=== PATIENT | female | born 1995 | race Caucasian/White ===

== ENCOUNTER 2021-10-13 11:54 | Outpatient (CLI) | payer OTHER ==
[2021-10-13 14:57] LABS: Hemoglobin 13.3 g/dL (12.0-15.5); Mean Corpuscular HGB CONC 32.1 g/dL (32.0-36.0); Mean Corpuscular Hemoglobin 27.8 pg (27.0-33.0); Mean Corpuscular Volume 86.6 fl (81.6-98.3); Mean Platelet Volume 9.8 fl (7.4-10.4); Platelet Count 439 10x3/uL (150-450); RBC Distribution Width 12.5 % (11.5-14.5); Red Blood Cell (RBC) Count 4.78 10x6/uL (3.90-5.03); White Blood Cell (WBC) Count 7.9 10x3/uL (3.5-10.5)
[2021-10-13 15:11] LABS: BHCG - Serum Negative (NEGATIVE); Pregs Control Background? CLEAR/WHITE (CLR/WHITE); Pregs Control Bar Appear? YES (CONTROL BAR)
[2021-10-14 09:12] LABS: SARS-CoV-2 PCR by NAA Not Detected (NotDetected)
== END 2021-10-13 11:55 | disposition home or self-care (01) ==
LOC: CSHLAB 11:54
PROVIDERS: ATTEND Obstetrics & Gynecology
DX: Z01.812 Encounter for preprocedural laboratory examination (principal); Z20.822 Contact with and (suspected) exposure to COVID-19; R10.2 Pelvic and perineal pain; G89.29 Other chronic pain; N94.6 Dysmenorrhea, unspecified; N80.0 Endometriosis of uterus
CPT/HCPCS: 84703; 85027; 86850; 86900; 86901; U0003; U0005

== ENCOUNTER 2021-10-18 08:11 | Day surgery (SDC) | payer OTHER ==
[2021-10-06 10:09] VITALS: BMI 45.3
[2021-10-13 14:57] LABS: Hemoglobin 13.3 g/dL (12.0-15.5); Mean Corpuscular HGB CONC 32.1 g/dL (32.0-36.0); Mean Corpuscular Hemoglobin 27.8 pg (27.0-33.0); Mean Corpuscular Volume 86.6 fl (81.6-98.3); Mean Platelet Volume 9.8 fl (7.4-10.4); Platelet Count 439 10x3/uL (150-450); RBC Distribution Width 12.5 % (11.5-14.5); Red Blood Cell (RBC) Count 4.78 10x6/uL (3.90-5.03); White Blood Cell (WBC) Count 7.9 10x3/uL (3.5-10.5)
[2021-10-13 15:11] LABS: BHCG - Serum Negative (NEGATIVE); Pregs Control Background? CLEAR/WHITE (CLR/WHITE); Pregs Control Bar Appear? YES (CONTROL BAR)
[2021-10-14 09:12] LABS: SARS-CoV-2 PCR by NAA Not Detected (NotDetected)
[2021-10-18] MEDS ORDERED: Gabapentin 300 MG CAP ONE (08:25)
[2021-10-18] MEDS ORDERED: CeleCOXIB 100 MG CAP ONE (08:25)
[2021-10-18] MEDS ORDERED: Famotidine/PF 20 mg/2ml Vial ONE (08:25)
[2021-10-18] MEDS ORDERED: Lidocaine 1% MPF 2 ML VIAL ONE (08:25)
[2021-10-18] MEDS ORDERED: EPINEPHrine 1 MG/ML AMP ONE (09:42)
[2021-10-18] MEDS ORDERED: Bupivacaine PF 0.5% 30 ML VIAL ONE (09:43)
[2021-10-18] MEDS ORDERED: Ondansetron PF 4 MG/2 ML Vial ONE (10:05)
[2021-10-18] MEDS ORDERED: Dexamethasone 20 MG/5 ML VIAL ONE (10:05)
[2021-10-18] MEDS ORDERED: Metoclopramide HCl 10 MG/2 ML VIAL ONE (10:05)
[2021-10-18] MEDS ORDERED: Lidocaine 1% PF 5 ML VIAL ONE (10:05)
[2021-10-18] MEDS ORDERED: Lidocaine 2% PF 5 ML VIAL ONE (10:06)
[2021-10-18] MEDS ORDERED: Glycopyrrolate 0.2 MG/ML 5 ML SYRINGE ONE (10:06)
[2021-10-18] MEDS ORDERED: Atropine Sulfate 0.4 mg/1 ml Vial ONE (10:06)
[2021-10-18] MEDS ORDERED: Ketorolac Tromethamine 30 MG/ML VIAL ONE (10:06)
[2021-10-18] MEDS ORDERED: Fentanyl 100 MCG/2 ML VIAL ONE (10:07)
[2021-10-18] MEDS ORDERED: Rocuronium Bromide 10 MG/ML (10ML VIAL) ONE (10:07)
[2021-10-18] MEDS ORDERED: PROPOFOL 20 ML ONE (10:07)
[2021-10-18] MEDS ORDERED: Midazolam HCl 2 mg/2 ml Vial ONE (10:07)
[2021-10-18] MEDS ORDERED: Ketamine 50 MG/ML (10ML VIAL) ONE (10:11)
[2021-10-18] MEDS ORDERED: ceFAZolin 2 GM/Dextrose 50 ML IVPB ONE (10:26)
[2021-10-18] MEDS ORDERED: Bupivacaine HCl 0.5%/Epinephrine 1:200,000/PF 30 ml Vial ONE (10:40)
[2021-10-18] MEDS ORDERED: Meperidine HCl/PF 25 MG/ML VIAL ONE (12:32)
== END 2021-10-18 14:20 | disposition home or self-care (01) ==
LOC: CSHSDC 08:11
PROVIDERS: ATTEND Obstetrics & Gynecology
PROC: 0UT74ZZ Resection of Bilateral Fallopian Tubes, Percutaneous Endoscopic Approach (ICD-10-PCS; principal; 2021-10-18)
PROC: 0UT94ZZ Resection of Uterus, Percutaneous Endoscopic Approach (ICD-10-PCS; principal; 2021-10-18)
DX: N80.0 Endometriosis of uterus (principal); N72 Inflammatory disease of cervix uteri; N83.8 Other noninflammatory disorders of ovary, fallopian tube and broad ligament; F17.290 Nicotine dependence, other tobacco product, uncomplicated; Z88.1 Allergy status to other antibiotic agents; Z98.51 Tubal ligation status; Z20.822 Contact with and (suspected) exposure to COVID-19
CPT/HCPCS: 84703; 85027; 86850; 86900; 86901; 88307; J0171; J0461; J0690; J1100; J1885; J2001; J2175; J2250; J2405; J2704; J2765; J3010; S0020; S0028; U0003; U0005